=== PATIENT | female | born 1975 | race Hispanic/Latino ===

== ENCOUNTER 2024-12-08 17:38 | Emergency (ER) | payer OTHER ==
--- OUTSIDE RECORDS SUMMARY | 2024-12-08 17:40 | XMS REPORT | Continuity of Care Document ---
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
[2024-12-08] MEDS ORDERED: NA CHLORIDE 0.9% 2,000 ML ONE (18:21)
--- NOTE | 2024-12-08 18:22 | RAD REPORT ---
EXAM: Chest Single View HISTORY: 49 years Female FEVER COMPARISON: None. FINDINGS: LUNGS/PLEURA: The lungs are clear. No pleural effusions or pneumothorax. No pulmonary edema. CARDIAC/MEDIASTINUM: The cardiac silhouette is within normal limits. UPPER ABDOMEN: No significant abnormality. BONES: No acute abnormality. LINES/TUBES/OTHER: N/A IMPRESSION: No evidence of acute cardiopulmonary disease.
[2024-12-08 18:36] LABS: PTT, Activated Partial Thromb 28.6 SECONDS (27.2-37.4); Protime INR 1.15
[2024-12-08 18:41] LABS: Absolute Lymphocytes (CBC) 1.1 K/uL (0.7-4.9); Absolute Monocytes 0.5 K/uL (0.1-1.3); Absolute Neutrophil 4.6 K/uL (1.8-8.0); Basophils % 0.1 % (0-1.3); Eosinophils % 0.3 % (0-4.4); Hematocrit 39.6 % (36.0-45.0); Hemoglobin 13.8 g/dL (12.0-15.0); Lymphocytes % 17.3 % (15.3-44.8); MCH 30.8 pg (27.0-35.0); MCHC 34.9 g/dL (32.0-36.0); MCV 88.4 fL (80-100); MPV 8.3 fL (7.6-11.3); Monocytes % 8.4 % (3.3-12.3); Neutrophils % 73.9 % (41.7-73.7); Platelets 209 thou/uL (152-406); RBC Red Blood Cell Count 4.48 M/uL (3.86-4.86); Red Cell Distribution Width 13.9 % (12.1-15.2)
[2024-12-08 18:44] LABS: Albumin 3.4 g/dL (3.4-5.0); Anion Gap 9.3 mEq/L (5.0-15.0); Bilirubin Total 0.6 mg/dL (0.2-1.0); Globulin 3.5 g/dL (2.3-3.5); Potassium 3.3 mEq/L (3.5-5.1); Protein, Total 6.9 g/dL (6.4-8.2)
[2024-12-08 19:03] LABS: Influenza A Ag Negative; Influenza B Ag Negative; SARS-CoV-2 Antigen Rapid Res Negative (Negative)
[2024-12-08 21:07] LABS: Specific Gravity 1.008 (1.005-1.030)
[2024-12-08 21:10] LABS: Specific Gravity 1.007 (1.005-1.030); Sqamous Epithelial <5 /HPF (None Seen); Urine Bacteria <20 /HPF (<20); Urine Bilirubin NEGATIVE (Negative); Urine Blood Negative (Negative); Urine Clarity Extremely Turbid (Clear); Urine Color Light-Yellow (Yellow); Urine Culture Reflex Order REFLEXED; Urine Glucose NEGATIVE (Negative); Urine Ketones 1+ (Negative); Urine Microscopic Reflex YN ORDER UMIC; Urine Mucus Slight /HPF (None Seen); Urine Nitrite NEGATIVE (Negative); Urine Protein NEGATIVE (Negative); Urine RBC <5 /HPF (None Seen); Urine Urobilinogen Normal (Normal); Urine Yeast (Budding) Trace /HPF (None Seen)
[2024-12-08] MEDS ORDERED: METOCLOPRAMIDE 10 MG/2mL INJ ONE (22:36)
[2024-12-08] MEDS ORDERED: KETOROLAC 30 MG/ML INJ ONE (22:36)
[2024-12-08] MEDS ORDERED: HYDROCODONE/APAP 5/325 MG TAB ONE (22:37)
[2024-12-08] MEDS ORDERED: CEPHALEXIN 250 MG CAP ONE (22:53)
--- NOTE | 2024-12-08 22:54 | EDPHYS ---
Physician Documentation [facility] Name: Di Mitchell Age: 49 yrs Sex: Female : 1975 Arrival Date: 12/08/2024 Time: 17:38 Bed 15 Private MD: ED Physician Ander Che HPI: 12/08 20:03 This 49 yrs old Female presents to ER via EMS with complaints of Headache, sp4 Fever. 20:06 This 49 yrs old Female presents to ER via EMS with complaints of Headache, gb1 Fever. 20:06 49-year-old female with fever and headache. Temperature 1-2.4 and bodyaches. Some gb1 urinary symptoms mostly hesitancy and urgency.. 12/09 19:11 Patient presents with complaints of acute viral illness. Patient care assumed from Dr. avinash Romero. Historical: - Allergies: 12/08 18:44 No Known Allergies; db - PMHx: 18:44 Diabetes - NIDDM; Hypertension; db - PSHx: 18:44 section; db - Immunization history:: Adult Immunizations unknown. - Infectious Disease History:: Denies. - Social history:: Smoking status: Patient denies any tobacco usage or history of. - Family history:: not pertinent. ROS: 12/09 19:11 Constitutional: Positive fever, positive chills, positive body aches, positive sp4 headache, positive generalized weakness, positive fatigue. All other systems are negative, Exam: 12/08 20:06 Constitutional: This is a well developed, well nourished patient who is awake, alert, gb1 and in no acute distress. Head/Face: Normocephalic, atraumatic. Eyes: Pupils equal round and reactive to light, extra-ocular motions intact. Lids and lashes normal. Conjunctiva and sclera are non-icteric and not injected. Cornea within normal limits. Periorbital areas with no swelling, redness, or edema. ENT: Nares patent. No nasal discharge, no septal abnormalities noted. Tympanic membranes are normal and external auditory canals are clear. Oropharynx with no redness, swelling, or masses, exudates, or evidence of obstruction, uvula midline. Mucous membranes moist. Neck: Trachea midline, no thyromegaly or masses palpated, and no cervical lymphadenopathy. Supple, full range of motion without nuchal rigidity, or vertebral point tenderness. No Meningismus. Chest/axilla: Normal chest wall appearance and motion. Nontender with no deformity. No lesions are appreciated. Cardiovascular: Regular rate and rhythm with a normal S1 and S2. No gallops, murmurs, or rubs. Normal PMI, no JVD. No pulse deficits. Respiratory: Lungs have equal breath sounds bilaterally, clear to auscultation and percussion. No rales, rhonchi or wheezes noted. No increased work of breathing, no retractions or nasal flaring. Abdomen/GI: Soft, non-tender, with normal bowel sounds. No distension or tympany. No guarding or rebound. No evidence of tenderness throughout. Skin: Warm, dry with normal turgor. Normal color with no rashes, no lesions, and no evidence of cellulitis. MS/ Extremity: Pulses equal, no cyanosis. Neurovascular intact. Full, normal range of motion. 12/09 19:11 Neuro: Exam negative for focal neuro deficits, motor deficits, sensory deficits, sp4 cerebellar deficits, altered mental status, confusion, dizziness, dysarthria, gait abnormality, paresthesias, weakness, Negative nuchal rigidity. No signs of meningitis. Vital Signs: 12/08 18:04 BP 118 / 68; Pulse 93; Resp 18; Temp 102.4(O); Pulse Ox 97% ; Weight 83.91 kg; Height 5 db ft. 2 in. ; Pain 4/10; 18:30 BP 117 / 62; Pulse 86; Resp 18; Pulse Ox 97% on R/A; db 19:00 BP 105 / 61; Pulse 85; Resp 20; Pulse Ox 98% on R/A; db 20:04 BP 113 / 60; Pulse 78; Resp 18; Pulse Ox 98% on R/A; km10 23:00 BP 107 / 68; Pulse 73; Resp 18; Temp 98.9; Pulse Ox 100% on R/A; km10 18:04 Body Mass Index 33.83 (83.91 kg, 157.48 cm) db 18:04 Pain Scale: Adult db Deidre Coma Score: 12/09 19:11 Eye Response: spontaneous(4). Motor Response: obeys commands(6). Verbal Response: sp4 oriented(5). Total: 15. 19:11 Eye Response: spontaneous(4). Motor Response: obeys commands(6). Verbal Response: sp4 oriented(5). Total: 15. MDM: 12/08 17:57 Medical Screening Exam initiated gb 20:06 Data reviewed: vital signs, nurses notes. ED course: 49-year-old female with fever and gb1 chills. Patient clinically stable appearing I doubt acute meningitis or encephalitis. I doubt acute appendicitis. Patient does not have any focal pneumonia on chest x-ray COVID and flu are also negative. Recommend urinalysis resulting and then disposition per urine consider acute pyelonephritis. Discharge home if negative with viral syndrome precautions. Patient is compliant with his plan of care at discharge. Patient transition clinical care to Dr. Che at 2004.. 20:11 ED course: Patient is clinically improved since arrival. At this time I highly doubt gb1 any kind of encephalitis. I will add a rapid strep and change in the patient's care to Dr. Che.. 12/09 19:11 Differential diagnosis: cluster headache, hypoglycemia, hyponatremia, migraine, tension sp4 headache, vasomotor headache. Consideration of Admission/Observation Escalation of care including admission/observation considered. ED course: Patient significantly improved after fever control and hydration. Patient states headache is gone. Negative meningeal signs. No signs of meningitis or encephalitis. Patient stable for discharge home. Incidentally found to have a mild UTI. Will prescribe cephalexin for 10 days.. 12/08 17:59 Order name: Blood Culture Adult (2) [facility] 12/08 17:59 Order name: CBC with Diff; Complete Time: 19:04 [facility] 12/08 17:59 Order name: CMP; Complete Time: 19:04 [facility] 12/08 17:59 Order name: Lactate w/ 2H reflex if indic.; Complete Time: 19:04 [facility] 12/08 17:59 Order name: Protime (+inr); Complete Time: 19:04 [facility] 12/08 17:59 Order name: Ptt, Activated; Complete Time: 19:04 [facility] 12/08 17:59 Order name: COVID-19 Ag + Flu A+B Ag; Complete Time: 19:04 [facility] 12/08 18:47 Order name: Glucose, Ancillary Testing; Complete Time: 19:04 EDMS 12/08 19:05 Order name: UA Rfx Mal Cult if indicated; Complete Time: 22:14 12/08 19:05 Order name: Test, Urine; Complete Time: 22:14 12/08 20:13 Order name: Group A Streptococcus Rapid; Complete Time: 22:14 12/08 21:39 Order name: Urine Culture [facility] 12/08 21:48 Order name: Throat Culture [facility] 12/08 17:59 Order name: Chest Single View XRAY; Complete Time: 18:26 12/08 17:59 Order name: Accucheck; Complete Time: 18:41 12/08 17:59 Order name: Cardiac monitoring; Complete Time: 18:41 12/08 17:59 Order name: EKG - Nurse/Tech; Complete Time: 18:41 12/08 17:59 Order name: IV Saline Lock - Large Bore; Complete Time: 18:27 12/08 17:59 Order name: Labs collected and sent; Complete Time: 18:27 12/08 17:59 Order name: O2 Per Protocol; Complete Time: 18:27 12/08 17:59 Order name: O2 Sat Monitoring; Complete Time: 18:27 12/08 17:59 Order name: Vital Signs; Complete Time: 18:27 gb Administered Medications: 12/08 18:17 Drug: NS 0.9% IV (30 ml/kg) 30 ml/kg IV at bolus once; Sepsis Protocol; to be given as db a bolus over 90 minutes Route: IV; Rate: bolus; Site: right antecubital; 22:41 Drug: HYDROcodone-acetaminophen PO 5 mg-325 mg 2 tabs PO once Route: PO; km10 23:01 Follow up: Response: No adverse reaction; Pain is decreased 10 22:41 Drug: Ketorolac IVP 30 mg IVP once Route: IVP; Site: right antecubital; km10 23:01 Follow up: Response: No adverse reaction 10 22:41 Drug: metoCLOPramide IVP 10 mg IVP once; over 1 to 2 minutes Route: IVP; Site: right [facility] antecubital; 23:01 Follow up: Response: No adverse reaction 10 22:58 Drug: Cephalexin PO 500 mg PO once Route: PO; km10 23:27 Follow up: Response: No adverse reaction km10 Point of Care Testing: Blood Glucose: 18:30 Blood Glucose: 150 mg/dL; db Ranges: Critical Glucose Levels:Adult <50 mg/dl or >400 mg/dl <40 mg/dl or >180 mg/dl Disposition: 12/09 19:14 Chart complete. sp4 Disposition Summary: 12/08/24 22:53 Discharge Ordered Notes: Location: Home sp4 Problem: new sp4 Symptoms: have improved sp4 Condition: Fair sp4 Diagnosis - UTI/ Urinary tract infection, site not specified sp4 - Acute viral syndrome, acute febrile illness sp4 Followup: sp4 - With: Private Physician - When: 7 - 10 days - Reason: Recheck today's complaints Discharge Instructions: - Discharge Summary Sheet sp4 - Urinary Tract Infection, Adult, [id number] sp4 - Viral Illness, Adult sp4 Forms: - Work release form sp4 - Patient Portal Instructions sp4 Prescriptions: - acetaminophen-codeine 300-30 mg Oral tablet - take 2 tablet ORAL route every 6 hours as needed for pain; 20 tablet; Refills: sp4 0, Product Selection Permitted - Cephalexin 500 mg Oral Capsule - take 1 capsule ORAL route every 12 hours for 10 days; 20 capsule; Refills: 0, sp4 Product Selection Permitted - Ibuprofen 600 mg Oral tablet - take 1 tablet ORAL route every 6 hours As needed PRN fever; 50 tablet; Refills: sp4 0, Product Selection Permitted - ondansetron 8 mg Oral Tablet,disintegrating - take 1 tablet ORAL route every 8 hours PRN nausea; 30 tablet; Refills: 0, sp4 Product Selection Permitted Signatures: Dispatcher [employer] Raiza Quick, RN RN Ander Arzola MD MD sp4 Celine Romero MD MD gb1 Edith Rudolph RN RN km10 Corrections: (The following items were deleted from the chart) 12/08 17:59 17:59 BLOOD CULTURE*+BA.LAB.BRZ ordered. EDMS EDMS 17:59 17:59 CBC+H.LAB.BRZ ordered. EDMS EDMS 17:59 17:59 COMPREHENSIVE METABOLIC PANEL+C.LAB.BRZ ordered. EDMS EDMS 17:59 17:59 LACTATE+C.LAB.BRZ ordered. EDMS EDMS 17:59 17:59 PROTIME (+INR)+COAG.LAB.BRZ ordered. EDMS EDMS 17 17:59 PTT, ACTIVATED+COAG.LAB.BRZ ordered. EDMS EDMS 17:59 COVID-19 Ag + Flu A+B Ag+I.LAB.BRZ ordered. EDMS EDMS 17 17:59 Chest Single View+RAD.RAD.BRZ ordered. EDMS EDMS
--- NOTE | 2024-12-08 22:54 | ER ---
Nurse's Notes [facility] Name: Di Mitchell Age: 49 yrs Sex: Female : 1975 Arrival Date: 12/08/2024 Time: 17:38 Bed 15 Private MD: Diagnosis: UTI/ Urinary tract infection, site not specified;Acute viral syndrome, acute febrile illness Presentation: 12/08 18:17 Chief complaint: EMS states: FEVER 102.8, ABD PAIN RADIATING TO LOWER BACK, HEADACHE db AND NAUSEA. EMS GAVE 1.25 MG DROPERIDOL, 975 MG PO TYLENOL. Coronavirus screen: Client denies travel out of the [place] in the last 14 days. At this time, the client does not indicate any symptoms associated with coronavirus-19. Ebola Screen: Patient negative for fever greater than or equal to 101.5 degrees Fahrenheit, and additional compatible Ebola Virus Disease symptoms Patient denies exposure to infectious person. Patient denies travel to an Ebola-affected area in the 21 days before illness onset. No symptoms or risks identified at this time. Initial Sepsis Screen: Does the patient meet any 2 criteria? No. Patient's initial sepsis screen is negative. Does the patient have a suspected source of infection? No. Patient's initial sepsis screen is negative. Risk Assessment: Do you want to hurt yourself or someone else? Patient reports no desire to harm self or others. Onset of symptoms was December 08, 2024. Care prior to arrival: Medication(s) given: Normal saline infusion, 500 mL, Tylenol, 975 MG DROPERIDOL 1.25 MG IV initiated. 20 GA, in the right antecubital area, Glucose check: 161. 18:17 Method Of Arrival: EMS: [facility] db 18:17 Acuity: RICHARD 3 db Triage Assessment: 18:17 Headache History: The patient has had previous headaches and this one is similar to db previous episodes. General: Appears in no apparent distress. uncomfortable, Behavior is calm, cooperative. Pain: Complains of pain in head, abdomen and back. Neuro: Level of Consciousness is awake, alert, obeys commands, Oriented to person, place, time, situation. Respiratory: Airway is patent Respiratory effort is even, unlabored, Respiratory pattern is regular, symmetrical. GI: Reports lower abdominal pain, nausea. 23:18 Pain: Also complains of. km10 Historical: - Allergies: 18:44 No Known Allergies; db - PMHx: 18:44 Diabetes - NIDDM; Hypertension; db - PSHx: 18:44 section; db - Immunization history:: Adult Immunizations unknown. - Infectious Disease History:: Denies. - Social history:: Smoking status: Patient denies any tobacco usage or history of. - Family history:: not pertinent. Screenin:47 [facility] ED Fall Risk Assessment (Adult) History of falling in the last 3 months, db including since admission No falls in past 3 months (0 pts) Confusion or Disorientation No (0 pts) Intoxicated or Sedated No (0 pts) Impaired Gait No (0 pts) Mobility Assist Device Used No (0 pt) Altered Elimination No (0 pt) Score/Fall Risk Level 0 - 2 = Low Risk Oriented to surroundings, Maintained a safe environment. Abuse screen: Denies threats or abuse. Denies injuries from another. Nutritional screening: No deficits noted. Tuberculosis screening: No symptoms or risk factors identified. Assessment: 18:17 Reassessment: SEE TRIAGE FOR INITIAL ASSESSMENT. db 18:30 Reassessment: Patient appears in no apparent distress at this time. Patient and/or db family updated on plan of care and expected duration. Pain level reassessed. Patient is alert, oriented x 3, equal unlabored respirations, skin warm/dry/pink. 20:03 Reassessment: Patient appears in no apparent distress at this time. Patient and/or km10 family updated on plan of care and expected duration. Pain level reassessed. Patient is alert, oriented x 3, equal unlabored respirations, skin warm/dry/pink. Neuro: Level of Consciousness is sleeping, easily awakens, A\T\O x 3. . Respiratory: Respiratory effort is even, unlabored. Vital Signs: 18:04 BP 118 / 68; Pulse 93; Resp 18; Temp 102.4(O); Pulse Ox 97% ; Weight 83.91 kg; Height 5 db ft. 2 in. ; Pain 4/10; 18:30 BP 117 / 62; Pulse 86; Resp 18; Pulse Ox 97% on R/A; db 19:00 BP 105 / 61; Pulse 85; Resp 20; Pulse Ox 98% on R/A; db 20:04 BP 113 / 60; Pulse 78; Resp 18; Pulse Ox 98% on R/A; km10 23:00 BP 107 / 68; Pulse 73; Resp 18; Temp 98.9; Pulse Ox 100% on R/A; km10 18:04 Body Mass Index 33.83 (83.91 kg, 157.48 cm) db 18:04 Pain Scale: Adult db Vitals: 19:16 Cardiac Rhythm Assessment Regular Sinus rhythm. db Deidre Coma Score: 12/09 19:11 Eye Response: spontaneous(4). Motor Response: obeys commands(6). Verbal Response: sp4 oriented(5). Total: 15. 19:11 Eye Response: spontaneous(4). Motor Response: obeys commands(6). Verbal Response: sp4 oriented(5). Total: 15. ED Course: 12/08 17:57 Patient arrived in ED. db 17:57 Celine Romero MD is Attending Physician. gb1 18:17 Initial lab(s) drawn, by me, sent to lab. First set of blood cultures drawn EKG done. db Maintain EMS IV. Dressing intact. Good blood return noted. Site clean \T\ dry. Gauge \T\ site: 20 G RAC. 18:17 Arm band placed on Patient placed in an exam room. db 18:19 Chest Single View XRAY In Process Unspecified. EDMS 18:25 Raiza Matias, JESSIE is Primary Nurse. db 18:30 Inserted saline lock: 22 gauge in left forearm, using aseptic technique. Blood db collected. Flushed with 10 mL NS. 18:41 COVID-19 Ag + Flu A+B Ag Sent. db 18:44 Triage completed. db 18:47 Patient has correct armband on for positive identification. Bed in low position. Call db light in reach. Side rails up X2. Client placed on continuous cardiac and pulse oximetry monitoring. NIBP monitoring applied. feed crusher on. Pulse ox on. NIBP on. Pillow given. 20:03 Edith Rudolph RN is Primary Nurse. km10 20:03 Attending Physician role handed off by Celine Romero MD sp4 20:03 Ander Che MD is Attending Physician. sp4 20:06 Attending Physician role handed off by Ander Che MD gb1 20:06 Celine Romero MD is Attending Physician. gb1 20:13 Ander Che MD is Attending Physician. sp4 20:49 Group A Streptococcus Rapid Sent. km10 20:49 Test, Urine Sent. km10 20:49 UA Rfx Mal Cult if indicated Sent. km10 22:33 Urine Culture Sent. km10 22:33 Throat Culture Sent. km10 23:18 IV discontinued, intact, bleeding controlled, No redness/swelling at site. Pressure km10 dressing applied, x 2. 23:18 No provider procedures requiring assistance completed. km10 23:18 Provided Education on: plan of care. km10 Administered Medications: 18:17 Drug: NS 0.9% IV (30 ml/kg) 30 ml/kg IV at bolus once; Sepsis Protocol; to be given as db a bolus over 90 minutes Route: IV; Rate: bolus; Site: right antecubital; 22:41 Drug: HYDROcodone-acetaminophen PO 5 mg-325 mg 2 tabs PO once Route: PO; km10 23:01 Follow up: Response: No adverse reaction; Pain is decreased km10 22:41 Drug: Ketorolac IVP 30 mg IVP once Route: IVP; Site: right antecubital; km10 23:01 Follow up: Response: No adverse reaction 10 22:41 Drug: metoCLOPramide IVP 10 mg IVP once; over 1 to 2 minutes Route: IVP; Site: right 10 antecubital; 23:01 Follow up: Response: No adverse reaction km10 22:58 Drug: Cephalexin PO 500 mg PO once Route: PO; km10 23:27 Follow up: Response: No adverse reaction [facility] Medication: 18:47 VIS not applicable for this client. db Point of Care Testing: Blood Glucose: 18:30 Blood Glucose: 150 mg/dL; db Ranges: Outcome: 22:53 Discharge ordered by . sp4 23:18 Discharged to home ambulatory, with family, km10 23:18 Condition: stable 23:18 Discharge instructions given to patient, family, Instructed on discharge instructions, follow up and referral plans. medication usage, Demonstrated understanding of instructions, follow-up care, medications, Prescriptions given X 4, 23:28 Patient left the ED. 10 Signatures: Dispatcher [employer] EDRaiza Voss RN RN db Potepalov, Sergey, MD MD sp4 Celine Romero MD MD gb1 Edith Rudolph RN RN km10 Corrections: (The following items were deleted from the chart) 18:46 18:04 BP 118 / 68; Pulse 93bpm; Resp 18bpm; Pulse Ox 97%; Temp 102.4F Oral; 83.91 kg; db Height 5 ft. 2 in.; BMI: 33.8; Pain 4/10, Adult; db
[2024-12-08 23:44] VITALS: BP 107/68; TEMP 98.9; O2SAT 100
== END 2024-12-08 23:28 | disposition home or self-care (01) ==
LOC: ER 17:38
DX: B34.9 Viral infection, unspecified (principal); N39.0 Urinary tract infection, site not specified; Z11.52 Encounter for screening for COVID-19
CPT/HCPCS: 93005; 87040 ×2; 87070; 87088; 85025; 81001; 87086; 36415; 81025; 85610; 82947; 83605; 85730; 80053; 71045; 96375; 96374; 99285; 87428; J2765; J7030